=== PATIENT | female | born 1985 | race Caucasian/White ===

== ENCOUNTER 2016-09-18 22:05 | Inpatient (IN) | payer BC ==
[2016-09-18] MEDS ORDERED: TERBUTALINE 1 MG/ML VIAL SQ PRN (22:55)
[2016-09-18] MEDS ORDERED: LIDOCAINE 1% (PF) 10 MG/ML (30 ML SDV) SQ PRN (22:55)
[2016-09-18] MEDS ORDERED: PENICILLIN G POTASSIUM 5,000,000 UNIT in DEXTROSE 5% IN WATER 100 ML IV STA ×2 (22:55)
[2016-09-18] MEDS ORDERED: METHYLERGONOVINE 0.2 MG/ML 1 ML AMP IM PRN (22:55)
[2016-09-18] MEDS ORDERED: CARBOPROST TROMETHAMINE 250 MCG/ML 1 ML AMP IM PRN (22:55)
[2016-09-18] MEDS ORDERED: OXYTOCIN 10 UNIT/ML 1 ML VIAL IM PRN (22:55)
[2016-09-18] MEDS ORDERED: OXYTOCIN 30 UNITS/500 ML NS 30 UNIT in SALINE 1 500ML.BAG IV SCH (23:00)
[2016-09-18] MEDS: LACTATED RINGERS 1,000 ML IV SCH (23:32)
[2016-09-18 23:46] LABS: Basophils % (A) 0 %; CH 32.5; CHCM 35.4; Eosinophils # (A) 0.2 k/uL (0-0.7); Eosinophils % (A) 1 %; HCT 37.7 % (34.0-46.0); HDW 2.64; HGB 13.1 gm/dL (11.4-16.0); Luc # (Auto) 0.28; Luc % (Auto) 3; Lymphocytes % (A) 18 %; MCHC 34.7 g/dL (31.0-37.0); MCV 92.2 fL (80.0-100.0); Mean Platelet Volume 8.1; Monocytes # (A) 0.5 k/uL (0-1.0); Monocytes % (A) 5 %; Neutrophils # (A) 7.9 k/uL (1.3-7.7); Neutrophils % (A) 72 %; RBC 4.09 m/uL (3.80-5.40); RDW 12.6 % (11.5-15.5); WBC (Perox) 11.62
[2016-09-19] MEDS: PENICILLIN G POTASSIUM 2,500,000 UNIT in DEXTROSE 5% IN WATER 100 ML IV SCH ×10 (03:35→20:21)
[2016-09-19] MEDS: LACTATED RINGERS 1,000 ML IV SCH ×2 (07:44→16:34)
[2016-09-19] MEDS ORDERED: BUTORPHANOL 1 MG/ML 1 ML VIAL IV PRN (09:07)
--- NOTE | 2016-09-19 09:13 | P.HPOB ---
History of Present Illness H&P Date: 09/19/16 Chief Complaint: 36+ weeks, spontaneous rupture of membranes The patient is a 31-year-old 3 para 0020 admitted at 36+ weeks as established by last menstrual period and confirmed by 8 week ultrasound. She is admitted with documented spontaneous rupture of membranes of clear fluid. Her has been essentially uncomplicated. She does have a history of a previous LEEP and cold knife cone but was followed with cervical lengths throughout the which remained within normal limits. On admission and since that time, all signs reassuring. Group B strep status is positive. Obstetrical history 3 para 0020 with 2 early miscarriages, one of which required a D&C. Current statistics are listed above. EDC of 2016 was established by last menstrual period and confirmed by 8 week ultrasound. Laboratory workup done traits of blood type of O+ with a negative antibody screen. Rubella status is immune. The remainder of the laboratory workup was within normal limits. Second trimester Glucola was normal and group B strep status is positive. Gynecologic history is unremarkable with no history of any infections to include STDs. Review of Systems Review of systems is confined to history of present illness. Past Medical History Past Medical History: Cancer Additional Past Medical History / Comment(s): CERVICAL CANCER History of Any Multi-Drug Resistant Organisms: None Reported Past Surgical History: Breast Surgery, Orthopedic Surgery Additional Past Surgical History / Comment(s): RIGHT KNEE, CONE BIOPSY Past Anesthesia/Blood Transfusion Reactions: No Reported Reaction Past Psychological History: No Psychological Hx Reported Smoking Status: Never smoker Past Alcohol Use History: Occasional Past Drug Use History: None Reported - Past Family History Mother Family Medical History: Cancer Additional Family Medical History / Comment(s): CERVICAL CANCER Medications and Allergies Home Medications Medication Instructions Recorded Confirmed Type Pnv with Ca,No.72/Iron/FA 1 each PO DAILY 10/06/15 09/18/16 History [ Plus Tablet] Allergies Allergy/AdvReac Type Severity Reaction Status Date / Time No Known Allergies Allergy Verified 09/18/16 22:54 Exam - Vital Signs Vital signs: Vital Signs Temp Pulse Resp BP 09/18/16 23:00 96.7 F L 74 14 134/82 09/18/16 22:20 96.7 F L 74 16 134/82 Intake and Output 09/18/16 09/19/16 09/19/16 22:59 06:59 14:59 Intake Total 100 Balance 100 Intake: IV 100 Penicillin G Potassium 5, 100 000,000 unit In Dextrose 5% in Water 100 ml @ 100 mls/hr IV ONCE STA Rx#: [id number] Other: # Voids 3 Weight 80.739 kg In general, this is a well-developed, well-nourished white female in no acute distress. Her heart has a regular rhythm and rate without murmur. Her lungs are clear to auscultation bilaterally in all ibarra. Her abdomen is gravid, nondistended, has normal active bowel sounds, is soft, nontender, and without any palpable masses aside from the uterine fundus. Her extremities are without any cyanosis, clubbing, or edema and are nontender to palpation bilaterally. Digital cervical examination done traits cervix to be 1-2 cm dilated, 100% effaced, with the vertex in presentation at -1-2 station. Membranes noted in front of the head artificially ruptured for clear fluid. Cervix does have the feel of some scar tissue at the rim consistent with previous cold knife cone. Results Result Diagrams: 09/18/16 23:28 Abnormal Lab Results - Last 24 Hours (Table) 09/18/16 Range/Units 23:28 WBC 11.0 H (3.8-10.6) k/uL Neutrophils # 7.9 H (1.3-7.7) k/uL Assessment and Plan (1) 36 to 37 weeks gestation of Status: Acute (2) premature rupture of membranes Status: Acute Plan: Tear is admitted for active management of labor. She initially declined Pitocin augmentation but now has agreed and been started on Pitocin augmentation. Additionally, she has been started on antibiotic prophylaxis for group B strep positivity. I have discussed with her that she will soon approach the definition of prolonged rupture of membranes and will continue to have close maternal and surveillance. Expectant management will be practiced. She is a good candidate for either IV or epidural analgesia, whichever she may choose.
[2016-09-19] MEDS ORDERED: fentaNYL (PF) 50 MCG/ML 5 ML AMP ONE ×2 (12:25)
[2016-09-19] MEDS ORDERED: BUPIVACAINE (PF) 0.25% 30 ML VIAL ONE ×2 (12:25)
[2016-09-19] MEDS ORDERED: SODIUM CHLORIDE 0.9% 100 ML BAG ONE ×2 (12:25)
[2016-09-19] MEDS ORDERED: ZOLPIDEM 5 MG TAB PO PRN (20:45)
[2016-09-19] MEDS ORDERED: Acetaminophen-Codeine 300-30mg TAB PO PRN ×2 (20:45)
[2016-09-19] MEDS ORDERED: HYDROCORTISONE 2.5% RECTAL CREAM 30 GM TUBE RECTAL PRN (20:45)
[2016-09-19] MEDS ORDERED: LANOLIN CREAM 5 GM TUBE TOPICAL PRN (20:45)
[2016-09-19] MEDS ORDERED: ACETAMINOPHEN TAB 325 MG TAB PO PRN (20:45)
[2016-09-19] MEDS ORDERED: SIMETHICONE 80 MG CHEWABLE PO PRN (20:45)
[2016-09-19] MEDS ORDERED: diphenhydrAMINE 50 MG/ML 1 ML VIAL IVP PRN ×2 (20:45)
[2016-09-19] MEDS ORDERED: diphenhydrAMINE 25 MG CAP PO PRN (20:45)
[2016-09-19] MEDS ORDERED: diphenhydrAMINE 50 MG CAP PO PRN (20:45)
--- NOTE | 2016-09-19 20:49 | P.PROBDLV ---
Vaginal Delivery Note - . Vaginal Delivery Note: The patient is a 31-year-old 3 para 0020 admitted at 36-2/7 weeks by good dating parameters. She is admitted with documented spontaneous rupture of membranes of clear fluid. She did not present with any significant contractions. She is known to be group B strep positive and her was otherwise uncomplicated. She carried a history of previous LEEP procedure as well as cold knife conization of the cervix. As result of these concerns, antibiotic prophylaxis was started on admission and she ultimately had Pitocin augmentation started as well. Her cervix had atypical scarred sensation to palpation. At approximately 2 cm of dilation, she had an epidural catheter placed for analgesia after which time her level of comfort was better and we were able to break down some of the scarring. She made fairly steady progress through the active phase of labor and ultimately progressed to complete. She pushed then for approximately 50 minutes to a normal spontaneous vaginal delivery of a viable 6 lbs. 15 oz. baby boy with Apgars of 8 at 1 minute and 9 at 5 minutes delivered in the direct occiput anterior position. The placenta was delivered spontaneously, intact, and grossly normal with a grossly normal, relatively centrally inserted three-vessel cord. There was a small second- degree midline perineal laceration which was repaired in standard fashion using 3-0 chromic catgut without difficulty. Estimated blood loss for the case was approximately 200 mL. There were no complications. All sponge, instrument, and needle counts were correct. Both mother and are resting comfortably in recovery.
[2016-09-19] MEDS: IBUPROFEN 600 MG TAB PO PRN (21:02)
[2016-09-19] MEDS: BENZOCAINE/MENTHOL SPRAY 1 GM/SPRAY AEROSOL TOPICAL PRN (21:03)
[2016-09-19] MEDS: WITCH HAZEL 1 EACH MED..PAD TOPICAL PRN (21:03)
[2016-09-20] MEDS: SENNOSIDES-DOCUSATE SODIUM 1 EACH TAB PO SCH ×2 (07:39→19:47)
[2016-09-20] MEDS: IBUPROFEN 600 MG TAB PO PRN ×2 (07:39→16:07)
--- NOTE | 2016-09-20 08:41 | P.PNOBGVD ---
Subjective - Subjective Patient reports: Reports appetite normal, Reports voiding normally, Reports pain well controlled, Reports ambulating normally : doing well Objective - Latest Vital Signs Latest vital signs: Vital Signs Temp Pulse Resp BP Pulse Ox 09/20/16 08:00 97.7 F 80 17 128/77 98 09/20/16 04:00 98.4 F 80 14 97/56 09/19/16 23:09 99.1 F 101 H 16 104/51 09/19/16 22:01 97.5 F L 70 14 124/67 09/19/16 21:31 97.2 F L 78 16 120/72 09/19/16 21:01 97.3 F L 65 14 140/72 09/19/16 20:46 75 16 142/71 09/19/16 20:31 97.2 F L 71 16 130/68 09/19/16 20:16 71 16 128/64 09/19/16 20:01 97.3 F L 83 16 150/74 Intake and Output 09/19/16 09/20/16 09/20/16 22:59 06:59 14:59 Intake Total 500 Balance 500 Intake: IV 500 Lactated Ringers 1,000 ml 300 @ 125 mls/hr IV .Q8H CANDICE Rx#:[id number] Oxytocin 30 Units/500 ml 200 Ns 30 unit In Saline 1 500ml.bag @ 1 MILLIUNIT/ MIN 1 mls/hr IV .Q24H CANDICE Rx#:[id number] Other: # Voids 1 1 - Exam Lungs: bilateral: normal Chest: Normal S1, Normal S2 Extremities: Present: normal Abdomen: Present: normal appearance, soft Uterus: Present: normal, firm (The uterine fundus is tonic and nontender below the umbilicus.) Assessment and Plan (1) 36 to 37 weeks gestation of Current Visit: Yes Status: Acute Code(s): [id number] - SNOMED Code(s): 077665142 (2) premature rupture of membranes Current Visit: Yes Status: Acute Code(s): O42.919 - PRETRM CHINO ROM, UNSP TIME BETW RUPT AND ONST LABR, UNSP TRI SNOMED Code(s): 021928964 (3) Normal spontaneous vaginal delivery Narrative/Plan: Continue routine care. The is to be monitored for 48 hours given the 36+ weeks of gestation as well as prolonged rupture of membranes. I anticipate discharge home tomorrow. Current Visit: Yes Status: Acute Code(s): O80 - ENCOUNTER FOR FULL-TERM UNCOMPLICATED DELIVERY SNOMED Code(s): 70524997
[2016-09-21] MEDS: SENNOSIDES-DOCUSATE SODIUM 1 EACH TAB PO SCH ×2 (07:47→22:51)
[2016-09-21] MEDS: IBUPROFEN 600 MG TAB PO PRN (07:47)
--- NOTE | 2016-09-21 09:01 | P.DS ---
Providers Date of admission: 09/18/16 22:53 Expected date of discharge: 09/21/16 Attending physician: Jagruti Moraes Primary care physician: Lalit Chu - Discharge Diagnosis(es) (1) 36 to 37 weeks gestation of Current Visit: Yes Status: Acute (2) premature rupture of membranes Current Visit: Yes Status: Acute (3) Normal spontaneous vaginal delivery Current Visit: Yes Status: Acute Hospital Course: The patient is a 31-year-old 3 para 0020 admitted at 36-5/7 weeks by good dating parameters. She is admitted with documented spontaneous rupture of membranes of clear fluid. She initially had no significant contractions and had Pitocin augmentation started. As she was group B strep positive, she had antibiotic prophylaxis started as well. She made very slow progress through the latent phase of labor, likely secondary to her history of LEEP and subsequent cold knife conization of the cervix was some cervical scarring. She did ultimately progressed to complete where after she pushed to a normal spontaneous vaginal delivery of a viable 6 lbs. 15 oz. baby boy with Apgars of 8 at 1 minute and 9 at 5 minutes. Her course was unremarkable vital signs being stable and her temperature was afebrile throughout. She was deemed stable for discharge by day #2 was discharged home to follow-up in the office in 6 weeks' time routinely. Discharge instructions included calling for any significantly increased bleeding or foul-smelling lochia, significantly increased fever abdominal pain, perineal complaints, breast complaints, or anything else that concerned her. She is additionally instructed to have nothing in the vagina for at least 6 weeks time to include intercourse. She understood her instructions and agrees to follow up as noted above. Discharge medications included continued vitamins as well as a [id number] analgesic as necessary. Maternal blood type is O+ and rubella status is immune. Procedures: #1. Antibiotic prophylaxis #2. Pitocin augmentation #3. Epidural analgesia # 4. Normal spontaneous vaginal delivery #5. Repair of perineal laceration Patient Condition at Discharge: Good Plan - Discharge Summary Discharge Medication List Pnv with Ca,No.72/Iron/FA [ Plus Tablet] 1 each PO DAILY 10/06/15 [ History] Follow up Appointment(s)/Referral(s): Lalit Chu MD [Primary Care Provider] - 6 Weeks Discharge Disposition: HOME SELF-CARE
[2016-09-21] MEDS: BENZOCAINE/MENTHOL SPRAY 1 GM/SPRAY AEROSOL TOPICAL PRN (16:39)
[2016-09-21] MEDS: WITCH HAZEL 1 EACH MED..PAD TOPICAL PRN (16:42)
[2016-09-21 16:51] VITALS: BP 122/79; PULSE 63; RESP 22; TEMP 98.4
== END 2016-09-21 22:55 | disposition home or self-care (01) | DRG 775 ==
LOC: FBPOP 22:05 → 4FBP 22:53
PROVIDERS: ADMIT Obstetrics & Gynecology; ATTEND Obstetrics & Gynecology
PROC: 3E0S3NZ Introduction of Analgesics, Hypnotics, Sedatives into Epidural Space, Percutaneous Approach (ICD-10-PCS; 2016-09-18)
PROC: 10E0XZZ Delivery of Products of Conception, External Approach (ICD-10-PCS; principal; 2016-09-19)
PROC: 0KQM0ZZ Repair Perineum Muscle, Open Approach (ICD-10-PCS; 2016-09-19)
PROC: 10907ZC Drainage of Amniotic Fluid, Therapeutic from Products of Conception, Via Natural or Artificial Opening (ICD-10-PCS; 2016-09-19)
DX: O42.913 Preterm premature rupture of membranes, unspecified as to length of time between rupture and onset of labor, third trimester (principal); N88.1 Old laceration of cervix uteri; O34.43 Maternal care for other abnormalities of cervix, third trimester; O99.824 Streptococcus B carrier state complicating childbirth; O70.1 Second degree perineal laceration during delivery; Z3A.36 36 weeks gestation of pregnancy; Z37.0 Single live birth; Z85.41 Personal history of malignant neoplasm of cervix uteri; Z80.49 Family history of malignant neoplasm of other genital organs
CPT/HCPCS: 59025; 84112; 85025; 88307; 99213